=== PATIENT | male | born 1985 | race Hispanic/Latino ===

== ENCOUNTER 2019-02-12 15:01 | Emergency (ER) | payer OTHER ==
[2019-02-12 15:27] VITALS: BP 114/72
--- NOTE | 2019-02-12 15:29 | Event Note ---
ED Screening Note Date of service: 02/12/19 Time: 15:24 ED Screening Note: This is a 33 y.o. M. in corporate compliance officer custody. Patient states he got up to fast, lightheaded, and hit his head on a toilet around 1145 today. Denies loc, SI/HI Laceration occipital scalp. This initial assessment/diagnostic orders/clinical plan/treatment(s) is/are subject to change based on patients health status, clinical progression and re- assessment by fellow clinical providers in the ED. Further treatment and workup at subsequent clinical providers discretion. Patient/guardian urged not to elope from the ED as their condition may be serious if not clinically assessed and managed. Initial orders include:
[2019-02-12] MEDS ORDERED: LIDOCAINE-MPF (1%) 10 MG/1 ML VIAL 5 ML INFILTRATI ONE (15:59)
[2019-02-12] MEDS ORDERED: IBUPROFEN 800 MG TAB PO ONE (16:07)
--- NOTE | 2019-02-12 16:11 | Emergency Department Report ---
ED Head Trauma HPI - General Chief complaint: Head Injury Stated complaint: INJURY TO HEAD/PAIN Time Seen by Provider: 02/12/19 15:24 Source: patient Mode of arrival: Wheelchair Limitations: No Limitations - History of Present Illness Initial comments: This is a 33 y.o. M. in asset protection officer custody. Patient states he got up to fast, lightheaded, and hit his head on a toilet around 1145 today. He denies any neck pain, neck pain, n/v. Complaint: head injury, head pain, fall -: Gradual, Sudden - Related Data Allergies/Adverse reactions: Allergies Allergy/AdvReac Type Severity Reaction Status Date / Time Penicillins Allergy Hives Verified 02/12/19 15:04 ED Review of Systems ROS: Stated complaint: INJURY TO HEAD/PAIN Other details as noted in HPI Comment: All other systems reviewed and negative Constitutional: no symptoms reported Skin: other (occipital scalp laceration) ED Past Medical Hx - Past Medical History Previous Medical History?: No - Surgical History Past Surgical History?: Yes Hx Appendectomy: Yes - Social History Smoking Status: Never Smoker Substance Use Type: None ED Physical Exam - General Limitations: No Limitations General appearance: alert, in no apparent distress - Head Head exam: Present: atraumatic, normocephalic - Eye Eye exam: Present: normal appearance - ENT ENT exam: Present: normal exam, normal orophraynx - Neck Neck exam: Present: normal inspection - Respiratory Respiratory exam: Present: normal lung sounds bilaterally - Cardiovascular Cardiovascular Exam: Present: regular rate, normal rhythm - GI/Abdominal GI/Abdominal exam: Present: soft, normal bowel sounds - Extremities Exam Extremities exam: Present: normal inspection - Neurological Exam Neurological exam: Present: alert, oriented X3, CN II-XII intact - Skin Skin exam: Present: other (scalp laceration 10 cm) ED Course Vital Signs 02/12/19 15:25 Temperature 98.2 F Pulse Rate 80 Respiratory 16 Rate Blood Pressure 114/72 [Left] O2 Sat by Pulse 96 Oximetry - Laceration /Wound Repair Head Wound Location: head Wound Length (cm): 10 Wound's Depth, Shape: superficial Wound Explored: no foreign body removed Betadine Prep?: Yes Anesthesia: 1% Lidocaine Volume Anesthetic (ccs): 10 Wound Debrided: moderate Number of Sutures: 12 (gaurav) Sterile Dressing Applied?: No - Medical Decision Making ct showed no intracranial injury lac was stapled in ER with 12 gaurav. will d/c back in custody - Differential Diagnosis subdural hematoma, subarachnoid hematoma, brain contusion, laceration Critical care attestation.: If time is entered above; I have spent that time in minutes in the direct care of this critically ill patient, excluding procedure time. ED Disposition Clinical Impression: Head injury Qualifiers: Encounter type: initial encounter Qualified Code(s): S09.90XA - Unspecified injury of head, initial encounter Occipital scalp laceration Qualifiers: Encounter type: initial encounter Qualified Code(s): S01.01XA - Laceration without foreign body of scalp, initial encounter Disposition: DC- TO HOME OR SELFCARE Is pt being admited?: No Does the pt Need Aspirin: No Condition: Stable Instructions: Laceration (ED), Minor Head Injury (ED), Staple Care (ED)
--- NOTE | 2019-02-12 16:15 | Cat Scan Report ---
CT HEAD WITHOUT CONTRAST INDICATION : Posterior head injury today. TECHNIQUE: Axial imaging performed from the skull apex through the skull base without the use of con trast. All CT scans at this location are performed using CT dose reduction for ALARA by means of aut omated exposure control. COMPARISON: None. FINDINGS: Noncontrast head CT demonstrates normal ventricles and sulci. No acute or recent infarct, h emorrhage, mass effect or midline shift. No abnormal extra-axial fluid collections. Grossly normal po sterior fossa with preserved basilar cisterns. Normal imaged eye globes. Slight right ethmoid sinusitis inferiorly, axial image 3. Clear remainder v isualized paranasal sinuses and mastoid air cells. Intact calvarium. Normal scalp. Few small radiopaq ue dental fillings. IMPRESSION: No acute intracranial CT abnormality, as described. Signer Name: Tiffany Denton Signed: 02/12/2019 4:11 PM Workstation Name: [id number]
== END 2019-02-12 16:30 | disposition home or self-care (01) ==
LOC: ED 15:01
DX: S01.01XA Laceration without foreign body of scalp, initial encounter (principal); Z88.0 Allergy status to penicillin; Z90.49 Acquired absence of other specified parts of digestive tract; X58.XXXA Exposure to other specified factors, initial encounter; Y93.89 Activity, other specified; Y92.89 Other specified places as the place of occurrence of the external cause; Y99.8 Other external cause status
CPT/HCPCS: 70450

== ENCOUNTER 2021-12-31 10:24 | Outpatient (CLI) | payer OTHER ==
--- NOTE | 2021-12-31 16:06 | Ultrasound Report ---
ULTRASOUND SCROTUM INDICATION / CLINICAL INFORMATION: LT TEST MASS. COMPARISON: None available. FINDINGS -- RIGHT TESTIS: Size = 4.9 x 2.5 x 4.1 cm. - Appearance: No significant abnormality. - Cyst or Mass: None. - Color Doppler Flow: No significant abnormality. EPIDIDYMIS: No significant abnormality. HYDROCELE: Small hydrocele with visible floating echoes/debris. VARICOCELE: None demonstrated. FINDINGS -- LEFT TESTIS: Size = 4.6 x 2.7 x 3.3 cm. - Appearance: No significant abnormality. - Cyst or Mass: None. - Color Doppler Flow: No significant abnormality. EPIDIDYMIS: No significant abnormality. HYDROCELE: Small hydrocele with visible floating echoes/debris VARICOCELE: None demonstrated. ADDITIONAL FINDINGS: None. IMPRESSION: 1. Both testes are unremarkable without evidence of intratesticular mass or abnormal vascularity. 2. Small bilateral hydroceles with complicated appearing fluid is noted bilaterally. Signer Name: Caroline Peralta MD Signed: 12/31/2021 4:02 PM Workstation Name: [id number]
== END 2021-12-31 10:25 | disposition home or self-care (01) ==
LOC: US 10:24
PROVIDERS: ATTEND Specialist
DX: N43.3 Hydrocele, unspecified (principal); D29.20 Benign neoplasm of unspecified testis
CPT/HCPCS: 93975